=== PATIENT | female | born 1990 | race Caucasian/White ===

== ENCOUNTER 2019-05-20 22:06 | Emergency (ER) | payer OTHER ==
--- NOTE | 2019-05-21 00:20 | ER Document Report ---
HPI - HPI Time Seen by Provider: 05/21/19 00:16 Pain Level: 4 Notes: Otherwise healthy 29-year-old female presenting to the emergency department with possible burn to her right third and fourth digits. She states that she was at work when this occurred, she states that hot soup splashed on her. She reports that there is blisters. She denies any pain. She reports Tdap is up-to-date. - REPRODUCTIVE Reproductive: DENIES: : Past Medical History - General Information source: Patient - Social History Smoking Status: Never Smoker Frequency of alcohol use: None Drug Abuse: None Family History: Reviewed & Not Pertinent Patient has suicidal ideation: No Patient has homicidal ideation: No Psychiatric Medical History: Reports: Hx Depression Past Surgical History: Reports: Hx Orthopedic Surgery - back - Immunizations Immunizations up to date: Yes Hx Diphtheria, Pertussis, Tetanus Vaccination: Yes Vertical Provider Document - CONSTITUTIONAL Notes: PHYSICAL EXAMINATION: GENERAL: Well-appearing, well-nourished and in no acute distress. HEAD: Atraumatic, normocephalic. EYES: Pupils equal round extraocular movements intact, conjunctiva are normal. ENT: Nares patent NECK: Normal range of motion LUNGS: No respiratory distress Musculoskeletal: Normal range of motion NEUROLOGICAL: Normal speech, normal gait. PSYCH: Normal mood, normal affect. SKIN: Blisters noted to right third and fourth digits on the palmar surface, not circumferential. No surrounding erythema. - INFECTION CONTROL TRAVEL OUTSIDE OF THE [place] IN LAST 30 DAYS: No Course - Re-evaluation Re-evalutation: Patient with very mild ndiaye. Will have her apply bacitracin ointment to the area and discharged home. ED return precautions discussed, patient verbalized understanding and agreement with plan. - Vital Signs Vital signs: Temp Pulse Resp BP Pulse Ox 98.9 F 55 L 16 106/45 L 100 05/20/19 22:34 05/20/19 22:34 05/20/19 22:34 05/20/19 22:34 05/20/19 22:34 Discharge - Discharge Clinical Impression: Burn of finger Qualifiers: Encounter type: initial encounter Laterality: right Burn degree: superficial (1st degree) Qualified Code(s): T23.121A - Burn of first degree of single right finger (nail) except thumb, initial encounter Condition: Stable Disposition: HOME, SELF-CARE Additional Instructions: Please apply bacitracin ointment to the area twice daily. Keep clean and dry. Wear gloves if you are working with your hands. Take ibuprofen for pain. Return to the emergency department with any new or worsening symptoms. Referrals: CARA LINDER MD [Primary Care Provider] - Follow up as needed
[2019-05-21 00:28] VITALS: BP 98/49
== END 2019-05-21 00:52 | disposition home or self-care (01) ==
LOC: ER 22:06
DX: T23.121A Burn of first degree of single right finger (nail) except thumb, initial encounter (principal); X12.XXXA Contact with other hot fluids, initial encounter
CPT/HCPCS: 99283